=== PATIENT | male | born 1950 | race Caucasian/White ===

== ENCOUNTER 2021-09-19 05:22 | Day surgery (SDC) | payer MEDICARE ==
[~2021-09-19] VITALS: Ht 462.3 cm; Wt 120.9 kg
[2021-09-19] VITALS (16 sets, daily range): BP systolic 115–139; BP diastolic 44–74; PULSE 59–76; TEMP 97.6–98
[2021-09-19] MEDS ORDERED: MOTRIN 200200 MG/TAB PO (06:22)
[2021-09-19] MEDS ORDERED: VITAMIND3 5000 PO (06:23)
[2021-09-19] MEDS ORDERED: ALOE VERA PO (06:24)
[2021-09-19] MEDS ORDERED: ASPIRIN E.C. 8181 MG PO (06:24)
[2021-09-19] MEDS ORDERED: MEGARED PO (06:25)
[2021-09-19] MEDS ORDERED: ONE-A-DAY ESSE1 EACH PO (06:25)
[2021-09-19] MEDS ORDERED: MAGNESIUM PO (06:26)
[2021-09-19] MEDS ORDERED: NATURAL IRON65 MG PO (06:27)
[2021-09-19] MEDS ORDERED: VITAMIN C500 MG PO (06:28)
[2021-09-19] MEDS ORDERED: FOLIC ACID PO (06:28)
[2021-09-19] MEDS ORDERED: CIPRO 500MG TA500 MG PO (06:29)
[2021-09-19] MEDS ORDERED: NORVASC 5MG5 MG/TAB PO (06:29)
[2021-09-19] MEDS ORDERED: HCTZ 25MG TAB25 MG PO (06:30)
[2021-09-19] MEDS ORDERED: CARDIZEM CD 18180 MG PO (06:31)
--- NOTE | 2021-09-19 07:03 | NUR ---
The patient was taken back to the OR by Manasa, after recieving a block. Teds applied.
--- NOTE | 2021-09-19 10:15 | NUR ---
PT Arrived from SX without incident with at bedside. With surgical nurse, right knee is covered in aquacel dressing, C/D/I with tape. PT was orientated to surgical room 327, all questions answered, call light within reach. Will continue to monitor per post op orders.
--- NOTE | 2021-09-19 23:26 | NUR ---
Report received from SISSY García. Patient is A&Ox4 and very pleasant. Patient had a RTK done, aquacell bandage in place. Patient does complain of some achiness in his right knee when he moves it. Right lower extremity elevated. Full body assessment completed and vital signs are WNL. Patient has a solis catheter in place, draining dark yellow urine. Patient has no other complaints at this time. Call light within reach.
[2021-09-20 00:21] VITALS: BP 124/56; PULSE 67; TEMP 97.6
[2021-09-20 03:37] VITALS: BP 107/59; PULSE 70; TEMP 97.7
[2021-09-20 05:50] VITALS: BP 107/59; PULSE 76; TEMP 97.7
[2021-09-20 06:32] LABS: HEMOGLOBIN 12.4 g/dl (13.5-18.0)
[2021-09-20 06:37] LABS: HEMATOCRIT 36.2 % (42.0-52.0)
[2021-09-20] MEDS ORDERED: CELEBREX 200MG200 MG PO (06:52)
[2021-09-20] MEDS ORDERED: ASPI325T6 PO (06:52)
[2021-09-20] MEDS ORDERED: NORCO 325 MG-7.1 TAB PO (06:52)
[2021-09-20 08:30] VITALS: BP 140/68; PULSE 70; TEMP 97.3
[2021-09-20 12:00] VITALS: BP 118/66; PULSE 94; TEMP 97.7
--- NOTE | 2021-09-20 13:07 | NUR ---
PT MET CRITERIA FOR DISCHARGE, VSS, PAIN CONTROLLED. IV REMOVED WITHOUT COMPLICATIONS, CATHETER INTACT. DISCHARGE INSTRUCTIONS REVIEWED, PT VERBALIZED UNDERSTANDING. PT AWARE OF F/U APPT AND OF PRESCRIPTIONS TO MARKETING SUPPORT ASSISTANT. PT DC TO HOME VIA WHEELCHAIR ACCOMPANIED BY MAGISTERIAL DISTRICT JUDGE.
== END 2021-09-20 12:25 | disposition home or self-care (01) ==
LOC: SURG 05:22 → SDCO 05:22 → SURG 11:08 → SDCO 09-20 12:25
PROVIDERS: Physician Assistant
DX: M17.11 Unilateral primary osteoarthritis, right knee (principal); E66.01 Morbid (severe) obesity due to excess calories; Z68.37 Body mass index [BMI] 37.0-37.9, adult
CPT/HCPCS: OP; A4314; A9284; C1713; C1776; J0690; J1885; J2250; J2704; J2795; J3010; J7120; J7121

== ENCOUNTER 2022-03-28 05:26 | Day surgery (SDC) | payer MEDICARE ==
[~2022-03-28] VITALS: Ht 182.9 cm; Wt 124.6 kg
[2022-03-28] VITALS (13 sets, daily range): BP systolic 100–150; BP diastolic 61–76; PULSE 55–81; TEMP 97.5–97.8
[~2022-03-28 05:26] MED LIST: ALOE VERA PO; ASPI325T6 PO; ASPIRIN E.C. 8181 MG PO; CARDIZEM CD 18180 MG PO; CELEBREX 200MG200 MG PO; CIPRO 500MG TA500 MG PO; FOLIC ACID PO; HCTZ 25MG TAB25 MG PO; MAGNESIUM PO; MEGARED PO; MOTRIN 200200 MG/TAB PO; NATURAL IRON65 MG PO; NORCO 325 MG-7.1 TAB PO; NORVASC 5MG5 MG/TAB PO; ONE-A-DAY ESSE1 EACH PO; VITAMIN C500 MG PO; VITAMIND3 5000 PO
[2022-03-28] MEDS ORDERED: MOTRIN 200200 MG/TAB PO (06:00)
[2022-03-28] MEDS ORDERED: PROBIOTIC-10 370 MG PO (06:01)
[2022-03-28] MEDS ORDERED: MOVE FREE JOIN1 EACH PO (06:02)
--- NOTE | 2022-03-28 06:15 | NUR ---
0537 ADMITTED AMBULATORY TO ROOM 7. ALERT, ORIENTED, COOPERATIVE. GAIT STEADY, RESP UNLABORED. PROCEDURE VERIFIED, CONSENT SIGNED. VITAL SIGNS OBTAINED, ASSESSMMENT DONE. IN ROOM. WILL KEEP PATIENT'S CELL PHONE AND GLASSES. THIGH HIGH AAYUSH HOSE TO RIGHT LOWER EXTREMITY. CHLORHEXADINE SCRUB TO LEFT KNEE
--- NOTE | 2022-03-28 15:35 | NUR ---
DURING THERAPY AQUACEL BECAME SATURATED, CHANGED AQUACEL AND REINFORCED WITH ABDS AND KARTIK WRAPS. REPORTED TO PRIMARY NURSE LORENA SHEEHAN.
--- NOTE | 2022-03-28 20:00 | NUR ---
PATIENT IS A&O. VSS. RATES PAIN IN LLE AT 4/10 AND REQUESTING PAIN PILL BEFORE BED, GIVEN. DAY SHIFT REPORTED A LOT OF BLOOD DRAINAGE TO LLE INCISION POST OP. BULK DRESSING TO LLE IS CURRENTLY CD&I WITH ACEWRAP. TEDS & SCD'S TO BLE. POSITIVE PEDAL PULSES TO BLE. NO C/O N/V. IV FLUIDS INFUSING VIA PUMP INTO LEFT HAND. HEAD TO TOE ASSESSMENT COMPLETE. NO OTHER NEEDS AT THIS TIME. CALL LIGHT IN REACH.
[2022-03-29 04:12] VITALS: BP 116/60; PULSE 70; TEMP 98
[2022-03-29] MEDS ORDERED: NORCO 325 MG-7.1 TAB PO (06:01)
[2022-03-29 06:45] LABS: HEMOGLOBIN 12.2 g/dl (13.5-18.0)
[2022-03-29 06:47] LABS: HEMATOCRIT 35.6 % (42.0-52.0)
[2022-03-29 08:00] VITALS: BP 125/63; PULSE 65; TEMP 97.6
--- NOTE | 2022-03-29 09:13 | NUR ---
PATIENT ALERT AND ORIENTED X4. VSS. PATIENT HERE FOR LEFT TOTAL KNEE. PATIENT DENIES ANY PAIN AT THIS TIME. ASSESSMENT PERFORMED. AM MEDS ADMINISTERED. AARON BERRIOS. PATIENT PROVIDED A URINAL AND ASKED TO ATTEMPT TO URINATE AND CALL IF ASSISTANCE IS NEEDED. CALL LIGHT WITHIN REACH.
--- NOTE | 2022-03-29 11:15 | NUR ---
DISCHARGE INSTRUCTIONS PROVIDED. PATIENT EDUCATION GIVEN. FOLLOW UP APPOINTSMENTS DISCUSSED. IV DC'D. PATIENT DENIES ANY QUESTIONS OR CONCERNS. PATIENT ESCORTED OUT VIA WHEELCHAIR.
== END 2022-03-29 10:45 | disposition home or self-care (01) ==
LOC: SDCO 05:26 → SURG 10:05 → SDCO 03-29 10:45
PROVIDERS: Orthopaedic Surgery
DX: M17.12 Unilateral primary osteoarthritis, left knee (principal); M25.762 Osteophyte, left knee
CPT/HCPCS: OP; A4314; A9284; C1713; C1776; J0690; J1100; J1885; J2250; J2704; J2795; J7120